=== PATIENT | female | born 1955 | race Caucasian/White ===

== ENCOUNTER 2017-01-19 15:02 | Day surgery (SDC) | payer OTHER ==
[~2017-01-19] VITALS: Ht 162.6 cm; Wt 76.0 kg
[2017-01-19] MEDS ORDERED: LACTATED RINGERS 1,000 ML IV SCH (15:32)
[2017-01-19] MEDS ORDERED: AMLO1CAP14 PO (15:35)
[2017-01-19 16:08] VITALS: BP 172/100
[2017-01-19 16:24] LABS: ASPARTATE AMINO TRANSFERASE 23 U/L (15-37); BLOOD UREA NITROGEN 17 mg/dL (7-18)
[2017-01-19] MEDS ORDERED: BUPIVACAINE/PF 0.5% ONE (16:41)
[2017-01-19] MEDS ORDERED: PROPOFOL 10 MG/ML, 20ML ONE (17:27)
[2017-01-19] MEDS ORDERED: ONDANSETRON 2MG/ML, 2ML ONE (17:27)
[2017-01-19] MEDS ORDERED: CEFAZOLIN 1,000 MG ONE (17:27)
[2017-01-19] MEDS ORDERED: LABETALOL 5MG/ML 40ML VIAL ONE (17:27)
[2017-01-19] MEDS ORDERED: DEXAMETHASONE 4 MG/ML, 1ML ONE (17:27)
[2017-01-19] MEDS ORDERED: METOCLOPRAMIDE 5 MG/ML, 2ML ONE (17:27)
[2017-01-19] MEDS ORDERED: FENTANYL PF 100 MCG/2ML ONE (17:53)
[2017-01-19] MEDS ORDERED: HYDROmorphone 1 MG/ML, 1ML IV PRN (18:00)
[2017-01-19] MEDS ORDERED: OXYcodone 5 MG/5 ML ORAL.SOL UDC PO PRN (18:00)
[2017-01-19] MEDS ORDERED: FENTANYL PF 100 MCG/2ML IV PRN (18:00)
[2017-01-19] MEDS ORDERED: hydrALAzine 20 MG/ML, 1ML IV PRN (18:00)
[2017-01-19] MEDS ORDERED: MIDAZOLAM 1 MG/ML, 2ML IV PRN (18:00)
[2017-01-19] MEDS ORDERED: PROMETHAZINE 25 MG/ML, 1ML IV PRN (18:00)
[2017-01-19] MEDS ORDERED: LABETALOL 5MG/ML, 20ML IV PRN (18:00)
[2017-01-19] MEDS ORDERED: MEPERIDINE/PF 25MG/0.5ML IVPush PRN (18:00)
[2017-01-19] MEDS ORDERED: ONDANSETRON 2MG/ML, 2ML IVPush PRN (18:00)
[2017-01-19] MEDS ORDERED: OXYcodone 5 MG/5 ML ORAL.SOL UDC ONE (19:10)
[2017-01-19] MEDS ORDERED: OXYC5TAB2 PO (21:31)
== END 2017-01-19 22:36 | disposition home or self-care (01) ==
LOC: OUT 15:02 → 4NOR 20:14 → OUT 22:36
PROVIDERS: ATTEND Orthopaedic Surgery
DX: S52.591A Other fractures of lower end of right radius, initial encounter for closed fracture (principal); X58.XXXA Exposure to other specified factors, initial encounter; Y93.89 Activity, other specified; Y92.89 Other specified places as the place of occurrence of the external cause; Y99.8 Other external cause status; I10 Essential (primary) hypertension
CPT/HCPCS: 25607; 36415; 73100; 76001; 80053; 93005; C1713; J0690; J1100; J2405; J2704; J2765; J3010; J3490; J7120